=== PATIENT | male | born 1960 | race Caucasian/White ===

== ENCOUNTER → 2021-10-13 | Outpatient (CLI) | payer OTHER ==
[2021-10-13 09:07] LABS: PROTHROMBIN TIME PATIENT 13.9 SEC (11.7-14.0)
--- NOTE | 2021-10-13 12:17 | EKG ---
[facility] [address] [place] [id number] Test Date: 2021-10-13 Test Time: 12:15:30 Pat Name: LON PETE Department: Room: Gender: M Director Vaccine: JMG : 1960 Requested By: TATY LEGGETT Order Number: [id number] Reading MD: Bhupendra Arthur MD Measurements Intervals Center Rate: 83 P: 28 IA: 132 QRS: -19 QRSD: 94 T: 3 QT: 362 QTc: 426 Interpretive Statements SINUS RHYTHM LEFTWARD AXIS Electronically Signed On 10-14-2021 8:58:01 CDT by Bhupendra Arthur MD
--- NOTE | 2021-10-13 13:19 | RAD ---
AP and Lateral Views of the Chest 10/13/2021 12:43 PM Indication: joint prehab patient-hx elevated bmi-preop eval / Comparison: None available Findings: There is no focal consolidation or infiltrate identified. Left basilar calcified granuloma noted. The cardiomediastinal silhouette is within normal limits. There is no evidence of pneumothorax or pleural effusion. No acute osseous abnormalities are identified. Impression: No evidence of acute cardiopulmonary process. Electronically signed by: Jamarcus Locke MD (10/13/2021 1:17 PM) [id number]
[2021-10-14 00:10] LABS: HEMOGLOBIN A1C 5.6 % (4.8-5.6)
== END ==
LOC: SURGPAT 12:25
PROVIDERS: ATTEND Orthopaedic Surgery
DX: Z01.818 Encounter for other preprocedural examination (principal); M16.11 Unilateral primary osteoarthritis, right hip; J84.10 Pulmonary fibrosis, unspecified
CPT/HCPCS: 36415; 71046; 82306; 83036; 85610; 85651; 85730; 87641; 93005